=== PATIENT | female | born 1990 | race Caucasian/White ===

== ENCOUNTER 2019-02-15 20:13 | Emergency (ER) | payer MEDICAID ==
[~2019-02-15] VITALS: Ht 162.6 cm; Wt 77.7 kg
[2019-02-15 20:29] VITALS: Ht 162.6 cm; Wt 77.7 kg
[2019-02-15] MEDS ORDERED: VITAMINS (20:30)
[2019-02-15] MEDS ORDERED: VALTREX500 MG PO (20:30)
[2019-02-15] MEDS ORDERED: [UNRECOGNIZED DRUG - OTHER] (20:31)
[2019-02-15 21:00] LABS: APPEARANCE CLEAR (CLEAR); BILIRUBIN NEGATIVE (NEGATIVE); COLOR YELLOW (YELLOW); GLUCOSE 100 mg/dL (NEGATIVE); KETONE NEGATIVE (NEGATIVE); NITRITE NEGATIVE (NEGATIVE); PROTEIN NEGATIVE (NEGATIVE); SPECIFIC GRAVITY 1.005 (1.005-1.020); UROBILINOGEN NORMAL (NORMAL)
[2019-02-15 21:15] LABS: ALKALINE PHOSPHATASE 83 U/L (46-116); ALT (SGPT) 16 U/L (10-68); CALC OSMOLALITY 272 mosm/kg (275-300); CALCIUM 9.2 mg/dL (8.5-10.1); CARBON DIOXIDE 21.4 mmol/L (21.0-32.0); CHLORIDE - SERUM 108 mmol/L (98-107); CREATININE - SERUM 0.5 mg/dL (0.6-1.3); GLUCOSE 86 mg/dL (74-106); POTASSIUM - SERUM 3.4 mmol/L (3.5-5.1); PROTEIN - SERUM 7.1 g/dL (6.4-8.2); SODIUM 138 mmol/L (136-145); UREA NITROGEN 6 mg/dL (7-18); eGFR NON AFRICAN AMERICAN > 90 mL/min (90-120)
[2019-02-15 21:19] LABS: BASOPHILS 0.3 % (0-2); EOSINOPHILS 1.9 % (0-7); HEMATOCRIT 31.2 % (36.0-48.0); HEMOGLOBIN 9.9 g/dL (12-16); IMMATURE GRANULOCYTES 0.1 % (0-5); LYMPHOCYTES 26.2 % (15-50); MCH 25.7 pg (26.0-34.0); MCHC 31.7 g/dL (31.0-37.0); MEAN PLATELET VOLUME 9.4 fL (7.4-10.4); MONOCYTES 6.9 % (2-11); NEUTROPHILS 64.6 % (40-80); PLATELET COUNT 253 10x3/uL (130-400); RBC 3.85 10x6/uL (4.00-5.40); RDW 18.9 % (11.5-14.5); WBC 7.5 10x3/uL (4.8-10.8)
[2019-02-15 21:39] LABS: HCG - QUANTITATIVE (MATERNAL) 92072 mIU/mL
[2019-02-16 01:20] VITALS: BP 110/72
== END 2019-02-16 01:19 | disposition home or self-care (01) ==
LOC: D.ER 20:13
PROVIDERS: Family Medicine
DX: O26.891 Other specified pregnancy related conditions, first trimester (principal); Z3A.11 11 weeks gestation of pregnancy; R10.2 Pelvic and perineal pain

== ENCOUNTER → 2019-04-12 15:44 | Outpatient (CLI) | payer MEDICAID ==
[2019-02-15 20:29] VITALS: BMI 29.4
[~2019-04-12 15:44] MED LIST: VALTREX500 MG PO; VITAMINS; [UNRECOGNIZED DRUG - OTHER]
[2019-04-12 16:49] LABS: APPEARANCE CLEAR (CLEAR); BILIRUBIN NEGATIVE (NEGATIVE); COLOR YELLOW (YELLOW); GLUCOSE NEGATIVE (NEGATIVE); KETONE NEGATIVE (NEGATIVE); NITRITE NEGATIVE (NEGATIVE); PROTEIN NEGATIVE (NEGATIVE); SPECIFIC GRAVITY 1.015 (1.005-1.020); UROBILINOGEN NORMAL (NORMAL)
== END | disposition home or self-care (01) ==
LOC: D.LDO 15:44
PROVIDERS: ATTEND Obstetrics & Gynecology
DX: O26.899 Other specified pregnancy related conditions, unspecified trimester (principal); Z3A.00 Weeks of gestation of pregnancy not specified

== ENCOUNTER → 2019-05-28 02:20 | Outpatient (CLI) | payer MEDICAID ==
[2019-02-15 20:29] VITALS: BMI 29.4
== END | disposition home or self-care (01) ==
LOC: D.LDO 02:20
PROVIDERS: ATTEND Student in an Organized Health Care Education/Training Program
DX: O26.892 Other specified pregnancy related conditions, second trimester (principal); Z3A.26 26 weeks gestation of pregnancy

== ENCOUNTER → 2019-06-30 15:50 | Outpatient (CLI) | payer MEDICAID ==
[2019-02-15 20:29] VITALS: BMI 29.4
[2019-06-30 16:38] LABS: APPEARANCE CLEAR (CLEAR); COLOR YELLOW (YELLOW)
[2019-06-30 16:39] LABS: BILIRUBIN NEGATIVE (NEGATIVE); GLUCOSE 50 mg/dL (NEGATIVE); KETONE NEGATIVE (NEGATIVE); NITRITE NEGATIVE (NEGATIVE); PROTEIN NEGATIVE (NEGATIVE); UROBILINOGEN NORMAL (NORMAL)
[2019-06-30 16:40] LABS: BACTERIA FEW /hpf (NONE SEEN); EPITHELIAL CELLS 0-5 /hpf (0-5); RED CELLS - URINE 0-5 /hpf (0-5); WHITE CELLS - URINE 0-5 /hpf (0-5)
== END | disposition home or self-care (01) ==
LOC: D.LDO 15:50
PROVIDERS: ATTEND Student in an Organized Health Care Education/Training Program
DX: O26.90 Pregnancy related conditions, unspecified, unspecified trimester (principal)

== ENCOUNTER → 2019-07-13 12:01 | Outpatient (CLI) | payer MEDICAID ==
[2019-02-15 20:29] VITALS: BMI 29.4
== END | disposition home or self-care (01) ==
LOC: D.LDO 12:01
PROVIDERS: ATTEND Obstetrics & Gynecology
DX: O36.8190 Decreased fetal movements, unspecified trimester, not applicable or unspecified (principal)

== ENCOUNTER 2019-07-26 02:38 | Outpatient (CLI) | payer MEDICAID ==
[2019-02-15 20:29] VITALS: BMI 29.4
[2019-07-26 03:03] LABS: UDS - AMPHET NEGATIVE QUAL (NEGATIVE); UDS - BARB NEGATIVE QUAL (NEGATIVE); UDS - BENZO NEGATIVE QUAL (NEGATIVE); UDS - COCAINE NEGATIVE QUAL (NEGATIVE); UDS - OPIATE NEGATIVE QUAL (NEGATIVE); UDS - PCP NEGATIVE QUAL (NEGATIVE); UDS - THC NEGATIVE QUAL (NEGATIVE)
[2019-07-26 03:07] LABS: APPEARANCE HAZY (CLEAR); BILIRUBIN NEGATIVE (NEGATIVE); COLOR YELLOW (YELLOW); GLUCOSE NEGATIVE (NEGATIVE); KETONE NEGATIVE (NEGATIVE); NITRITE NEGATIVE (NEGATIVE); PROTEIN NEGATIVE (NEGATIVE); UROBILINOGEN NORMAL (NORMAL)
[2019-07-26 03:08] LABS: BACTERIA MODERATE /hpf (NEGATIVE); EPITHELIAL CELLS 0-5 /hpf (0-5); RED CELLS - URINE 0-5 /hpf (0-5)
[2019-08-22 09:05] VITALS: BMI 30.9
== END 2019-07-26 04:55 | disposition home or self-care (01) ==
LOC: D.LDO 02:38
PROVIDERS: ATTEND Obstetrics & Gynecology
DX: O36.8130 Decreased fetal movements, third trimester, not applicable or unspecified (principal); Z3A.34 34 weeks gestation of pregnancy

== ENCOUNTER → 2019-07-31 17:02 | Outpatient (CLI) | payer MEDICAID ==
[2019-02-15 20:29] VITALS: BMI 29.4
[~2019-07-31 17:02] MED LIST changes: +HYDROCODON-ACE1 EAC7 PO; +IBUPROFEN600 MG PO; +TYLENOL W/CODEI1 TAB PO
[2019-08-22 09:05] VITALS: BMI 30.9
== END | disposition home or self-care (01) ==
LOC: D.LDO 17:02
PROVIDERS: ATTEND Obstetrics & Gynecology
DX: O26.93 Pregnancy related conditions, unspecified, third trimester (principal); Z3A.00 Weeks of gestation of pregnancy not specified

== ENCOUNTER 2019-08-03 21:14 | Outpatient (CLI) | payer MEDICAID ==
[2019-02-15 20:29] VITALS: BMI 29.4
[~2019-08-03 21:14] MED LIST changes: -HYDROCODON-ACE1 EAC7 PO; -IBUPROFEN600 MG PO; -TYLENOL W/CODEI1 TAB PO
[2019-08-03 21:45] LABS: APPEARANCE CLEAR (CLEAR); BILIRUBIN NEGATIVE (NEGATIVE); COLOR STRAW (YELLOW); GLUCOSE NEGATIVE (NEGATIVE); KETONE NEGATIVE (NEGATIVE); NITRITE NEGATIVE (NEGATIVE); PROTEIN NEGATIVE (NEGATIVE); SPECIFIC GRAVITY 1.005 (1.005-1.020); UROBILINOGEN NORMAL (NORMAL)
[2019-08-22 09:05] VITALS: BMI 30.9
== END 2019-08-03 21:54 | disposition home or self-care (01) ==
LOC: D.LDO 21:14
PROVIDERS: ATTEND Obstetrics & Gynecology
DX: O47.9 False labor, unspecified (principal)

== ENCOUNTER 2019-08-08 17:58 | Outpatient (CLI) | payer MEDICAID ==
[2019-02-15 20:29] VITALS: BMI 29.4
[2019-08-22 09:05] VITALS: BMI 30.9
== END 2019-08-08 19:29 | disposition home or self-care (01) ==
LOC: D.LDO 17:58
PROVIDERS: ATTEND Obstetrics & Gynecology
DX: O26.899 Other specified pregnancy related conditions, unspecified trimester (principal); Z3A.00 Weeks of gestation of pregnancy not specified

== ENCOUNTER → 2019-08-20 14:54 | Outpatient (CLI) | payer MEDICAID ==
[2019-02-15 20:29] VITALS: BMI 29.4
[~2019-08-20 14:54] MED LIST changes: +HYDROCODON-ACE1 EAC7 PO; +IBUPROFEN600 MG PO; +TYLENOL W/CODEI1 TAB PO
[2019-08-22 09:05] VITALS: BMI 30.9
== END | disposition home or self-care (01) ==
LOC: D.LDO 14:54
PROVIDERS: ATTEND Obstetrics & Gynecology
DX: O35.9XX0 Maternal care for (suspected) fetal abnormality and damage, unspecified, not applicable or unspecified (principal)

== ENCOUNTER 2019-08-22 07:45 | Inpatient (IN) | payer MEDICAID ==
[~2019-08-22] VITALS: Ht 162.6 cm; Wt 81.6 kg
[~2019-08-22 07:45] MED LIST changes: -HYDROCODON-ACE1 EAC7 PO; -IBUPROFEN600 MG PO; -TYLENOL W/CODEI1 TAB PO
[2019-08-22] MEDS ORDERED: TYLENOL W/CODEI1 TAB PO (07:48)
[2019-08-22 08:12] LABS: APPEARANCE CLEAR (CLEAR); BILIRUBIN NEGATIVE (NEGATIVE); COLOR YELLOW (YELLOW); GLUCOSE NEGATIVE (NEGATIVE); KETONE NEGATIVE (NEGATIVE); NITRITE NEGATIVE (NEGATIVE); PROTEIN NEGATIVE (NEGATIVE); SPECIFIC GRAVITY 1.005 (1.005-1.020); UROBILINOGEN NORMAL (NORMAL)
[2019-08-22 09:05] VITALS: BP 120/74; Ht 162.6 cm; Wt 81.6 kg
[2019-08-22 09:21] LABS: HEMATOCRIT 32.2 % (36.0-48.0); HEMOGLOBIN 10.2 g/dL (12-16); MCH 28.7 pg (26.0-34.0); MCHC 31.7 g/dL (31.0-37.0); MCV 90.4 fL (80.0-100.0); RBC 3.56 10x6/uL (4.00-5.40); RDW 13.8 % (11.5-14.5); WBC 10.6 10x3/uL (4.8-10.8)
[2019-08-22 09:41] LABS: UDS - AMPHET NEGATIVE QUAL (NEGATIVE); UDS - BARB NEGATIVE QUAL (NEGATIVE); UDS - BENZO NEGATIVE QUAL (NEGATIVE); UDS - COCAINE NEGATIVE QUAL (NEGATIVE); UDS - OPIATE NEGATIVE QUAL (NEGATIVE); UDS - PCP NEGATIVE QUAL (NEGATIVE); UDS - THC NEGATIVE QUAL (NEGATIVE)
--- NOTE | 2019-08-22 12:58 | NUR ---
[employer] [facility] Referral Form completed per patient and faxed to [facility]
--- NOTE | 2019-08-22 15:40 | NUR ---
RECEIVED AMB TO ROOM FROM LABOR AND DELIVERY. PT RATES HER PAIN AT 3/10 AND STATES UNDERSTANDING THAT MEDS ARE AVAILABLE IF NEEDED. ORIENT TO ROOM, BATHROOM AND CALL LIGHT. SHE DENIES NEEDS AT THIS TIME, INFANT IN CRIB AT BEDSIDE AND FAMILY MEMBERS PRESENT.
--- NOTE | 2019-08-22 17:00 | NUR ---
LARGE CUP OF ICE PER REQUEST. DENIES ANY OTHER NEEDS AT THIS TIME.
--- NOTE | 2019-08-22 18:40 | NUR ---
PT RATES PAIN AT 4/10, MOTRIN GIVEN PER REQUEST AND SCANNED TO EMAR. FAMILY AT BEDSIDE, WITH IN ROOM. SIDE RAILS UP X 2 WITH CALL LIGHT IN REACH.
--- NOTE | 2019-08-22 19:33 | NUR ---
BEDSIDE REPORT RECEIVED OFF GOING DAY SHIFT CHAPIN [facility]. PT RESTING IN BED. FAMILY IN ROOM. PT DENIES ANY COMPLAINTS OR NEEDS. AT THIS TIME. PT INSTRUCTED TO NOTIFY NURSE WITH ANY PROBLEMS, NEEDS, OR CONCERNS. VERBALIZED UNDERSTANDING. BED IN LOW POSITION, SRUP X2, CALL LIGHT AND TELEPHONE WITHIN PTS REACH.
--- NOTE | 2019-08-22 20:15 | NUR ---
PT RESTING IN BED HOLDING . FAMILY IN ROOM. PT DENIES ANY COMPLAINTS OR NEEDS. INSTRUCTED PT TO NOTIFY NURSE WITH ANY PROBLEMS, NEEDS, OR CONCERNS. VERBALIZED UNDERSTANDING. BED IN LOW POSITION, SRUP X2, CALL LIGHT AND TELEPHONE WITHIN PTS REACH.
[2019-08-22 21:30] VITALS: BP 133/76
--- NOTE | 2019-08-22 21:30 | NUR ---
PT RESTING IN BED HOLDING . S/O IN ROOM. ASSESSMENT COMPLETE PER FLOWSHEET. VSS. BS CLEAR IN ALL LOBES. AUDIBLES BS X4 QUADRANTS. FUNDUS FIRM AT [facility]. SMALL AMOUNT OF LOCHIA NOTED ON PERIPAD. PT REPORTS THAT SHE HAS PASSED SOME SMALL CLOTS THAT SHE STATES HAVE BEEN NICKEL SIZED. PT DENIES PASSING CLOTS THAT ARE ANY LARGER THAN THAT SIZE. PT ENCOURAGED TO INFORM NURSE IF SHE PASSES CLOTS LARGER THAN AN EGG. PT REPORTS THAT SHE IS VOIDING WITHOUT DIFFICULTY. POC DISCUSSED INCLUDING PAIN MANAGEMENT, PERICARE, AND LOCHIA. PT INSTRUCTED TO NOTIFY NURSE WITH ANY PROBLEMS, NEEDS,OR CONCERNS. VERBALIZED UNDERSTANDING. BED IN LOW POSITION, SRUP X2, CALL LIGHT AND TELEPHONE WITHIN PTS REACH.
--- NOTE | 2019-08-22 22:10 | NUR ---
WALKING IN HALLWAY. GAIT STEADY.
--- NOTE | 2019-08-22 23:53 | NUR ---
PT RESTING IN BED. C/O PERINEAL PAIN. MOTRIN 600MG GIVEN PER PT REQUEST. WATER PITCHER FILLED. PT INSTRUCTED TO NOTIFY NURSE WITH ANY PROBLEMS, NEEDS, OR CONCERNS. VERBALIZED UNDERSTANDING. BED IN LOW POSITION, SRUP X2, CALL LIGHT AND TELEPHONE WITHIN PTS REACH.
--- NOTE | 2019-08-23 00:30 | NUR ---
PT RESTING IN BED WITH EYES CLOSED. NO DISTRESS NOTED. BED IN LOW POSITION, SRUP X2, CALL LIGHT AND TELEPHONE WITHIN PTS REACH.
--- NOTE | 2019-08-23 02:05 | NUR ---
PT RESTING IN BED HOLDING . PT DENIES ANY COMPLAINTS OR NEEDS AT THIS TIME. INSTRUCTED PT TO NOTIFY NURSE WITH ANY PROBLEMS, NEEDS, OR CONCERNS. VERBALIZED UNDERSTANDING. BED IN LOW POSITION, SRUP X2, CALL LIGHT AND TELEPHONE WITHIN PTS REACH.
[2019-08-23 04:10] VITALS: BP 128/68
--- NOTE | 2019-08-23 04:10 | NUR ---
THIS RN AGREES WITH SHIFT ASSESSMENT CHARTED
--- NOTE | 2019-08-23 04:10 | NUR ---
PT SITTING UP IN BED TALKING WITH NURSERY NURSE. VSS. PT DENIES ANY COMPLAINTS OR NEEDS AT THIS TIME. INSTRUCTED PT TO NOTIFY NURSE WITH ANY PROBLEMS, NEEDS, OR CONCERNS. VERBALIZED UNDERSTANDING. BED IN LOW POSITION, SRUP X2, CALL LIGHT AND TELEPHONE WITHIN PTS REACH.
--- NOTE | 2019-08-23 05:49 | NUR ---
SIGNIFICANT OTHER OUT OF ROOM. PT RESTING AT THIS TIME. RESP REGULAR AND UNLABORED, NO S/S OF DISTRESS NOTED. INFANT RESTING IN OPEN CRIB. BED IN LOW POSITION WITH SRUPX2. CALL LIGHT AND PHONE WITHIN REACH.
[2019-08-23 06:22] LABS: BASOPHILS 0.1 % (0-2); EOSINOPHILS 0.7 % (0-7); HEMATOCRIT 29.1 % (36.0-48.0); HEMOGLOBIN 9.2 g/dL (12-16); IMMATURE GRANULOCYTES 0.5 % (0-5); LYMPHOCYTES 21.2 % (15-50); MCH 28.4 pg (26.0-34.0); MCHC 31.6 g/dL (31.0-37.0); MCV 89.8 fL (80.0-100.0); MEAN PLATELET VOLUME 9.3 fL (7.4-10.4); MONOCYTES 6.2 % (2-11); NEUTROPHILS 71.3 % (40-80); PLATELET COUNT 206 10x3/uL (130-400); RBC 3.24 10x6/uL (4.00-5.40); RDW 13.9 % (11.5-14.5); WBC 10.2 10x3/uL (4.8-10.8)
--- NOTE | 2019-08-23 06:33 | NUR ---
PT RESTING IN BED HOLDING . PT C/O THROBBING IN HER PERINEAL AREA. MOTRIN 600MG GIVEN PER PT REQUEST. WATER PITCHER FILLED. INSTRUCTED PT TO NOTIFY NURSE WITH ANY PROBLEMS, NEEDS, OR CONCERNS. VERBALIZED UNDERSTANDING. BED IN LOW POSITION, SRUP X2, CALL LIGHT AND TELEPHONE WITHIN PTS REACH.
--- NOTE | 2019-08-23 07:30 | NUR ---
THIS RN TO ROOM WITH DR GR FOR ROUNDING. DR GR DISCUSSING DISCHARGE WITH PT, ORDERS SHE MAY DISCHARGE HOME WITH . PT STATES SHE WANTS TO GO HOME TODAY. PT DENIES NEEDS AT THIS TIME. SRUx2, CL IN REACH. WILL CONT TO MONITOR.
[2019-08-23 08:10] VITALS: BP 133/65
--- NOTE | 2019-08-23 08:10 | NUR ---
THIS RN RETURNS TO ROOM FOR SHIFT ASSESSMENT. PT SITTING UP IN BED VISITING WITH FAMILY AND HOLDING IN LAP. PT SWADDLES AND HANDS OFF TO FOB. SHIFT ASSESSMENT COMPLETE, VSS, PT RATES PAIN 2/10 AND DENIES NEED FOR PAIN MED OR INTERVENTION. SEE FLOWSHEET FOR DOC. FF, ML, U/2. SMALL RUBRA LOCHIA NOTED TO PERIPAD, NO CLOTS SEEN OR EXPRESSED WTIH FUNDAL CHECK. DISCUSSED WITH PT WHAT S/S TO REPORT WITH LOCHIA, UNDERSTANDING VERBALIZED. PT STATES SHE DID PASS SOME CLOTS DURING THE NIGHT, BUT HASN'T HAD ANYMORE. NO EDEMA NOTED TO LE, PEDAL PULSES 2+ BILAT, NEG HOMANS SIGN. LEFT WRIST PIV REMOVED WITHOUT INCIDENT, NO LONGER INDICATED. PRESSURE HELD AND BANDAID APPLIED. POC DISCUSSED WITH PT, STATES SHE IS READY TO GO HOME WHEN ABLE. DENIES NEEDS AT THIS TIME. SRUx2, CL IN REACH. FAMILY MEMBERS AT BEDSIDE.
[2019-08-23 08:11] LABS: RAPID PLASMA REAGIN Non Reactive (Non Reactive)
--- NOTE | 2019-08-23 09:40 | NUR ---
PT UP TO SHOWER, PROVIDED WITH TOWELS PER REQUEST, DENIES FURTHER NEEDS. FOB IN ROOM WITH PT, HOLDING INFANT. WILL CONT TO MONITOR.
--- NOTE | 2019-08-23 10:50 | NUR ---
THIS RN TO PT ROOM PER PT REQUEST HOME CARE [place] LIGHT. PT SITTING UP IN BED, ATTEMPTING TO LATCH TO BREAST, REQUESTS ASSISTANCE WON'T LATCH. INFANT REPOSITIONED, PT LATCHES INFANT ONTO LEFT BREAST, GOOD LATCH. PT DENIES FURTHER NEEDS. WILL CONT TO MONITOR. SRUx2, CL IN REACH. FAMILY MEMBERS AT BEDSIDE.
--- NOTE | 2019-08-23 11:58 | NUR ---
THIS RN TO ROOM FOR PT CHECK. PT AMBULATING IN ROOM, DENIES NEEDS. FAMILY IN ROOM WITH PT. WILL CONT TO MONITOR.
--- NOTE | 2019-08-23 12:35 | NUR ---
THIS RN TO ROOM FOR PT CHECK, PT DENIES NEEDS. WILL CONT TO MONITOR
--- NOTE | 2019-08-23 13:00 | NUR ---
PT QUESTIONS IF DEPO SHOT WILL "LEVEL OUT" HER HORMONES AND HELP HER SLEEP BETTER. IS AGREEABLE TO FLU VACCINE WELL. WILL NOTIFY
--- NOTE | 2019-08-23 13:10 | NUR ---
DR GR PHONED AND NOTIFIED OF PT QUESTION ON DEPO SHOT, STATES SHE MAY HAVE DEPO SHOT IM PER PROTOCOL IF DESIRED, AND MAY START ON ZOLOFT 25M PO DAILY IF DESIRED IF SHE HAS HISTORY OF PP DEPRESSION AND FEELS IT IS NEEDED. WILL UPDATE PT.
--- NOTE | 2019-08-23 13:15 | NUR ---
PT STATES SHE WILL WAIT AND GET DEPO SHOT AT APPOINTMENT, DENIES NEEDING ZOLOFT, STATES "I'LL JUST START TAKING MY MELATONIN AGAIN TO HELP ME SLEEP." WILL PROCEED WITH DISCHARGE ORDERED.
[2019-08-23] MEDS ORDERED: HYDROCODON-ACE1 EAC7 PO (13:19)
[2019-08-23] MEDS ORDERED: IBUPROFEN600 MG PO (13:20)
--- NOTE | 2019-08-23 14:20 | NUR ---
DISCHARGE INSTRUCTIONS GIVEN WELL PRESCRIPTIONS PROVIDED BY DR GR FOR PAIN CONTROL POST D/C TO HOME. PT VERBALIZES UNDERSTANDING AND DENIES QUESTIONS. PT REQUESTING MOTRIN FOR CRAMPING RATED 5/10 POST . WILL ADMIN ORDERED, SEE EMAR.
--- NOTE | 2019-08-23 14:27 | NUR ---
MOTRTIN ADMIN ORDERED FOR PAIN AT 1424, FLU VACCINE ADMIN TO RIGHT DELTOID ORDERED IM, SEE EMAR FOR MED DOC. PT DENIES FURTHER NEEDS AT THIS TIME. SRUx2, CL IN REACH. AWAITING NURSERY TO DISCHARGE .
== END 2019-08-23 15:37 | disposition home or self-care (01) | DRG 807 ==
LOC: D.LDO 07:45 → D.WS 08:35 → D.LD 08:35 → D.WS 15:43
PROVIDERS: ADMIT Obstetrics & Gynecology; ATTEND Obstetrics & Gynecology
PROC: 10E0XZZ Delivery of Products of Conception, External Approach (ICD-10-PCS; principal; 2019-08-22)
PROC: 0KQM0ZZ Repair Perineum Muscle, Open Approach (ICD-10-PCS; 2019-08-22)
DX: O62.3 Precipitate labor (principal); Z37.0 Single live birth; Z3A.38 38 weeks gestation of pregnancy; O99.334 Smoking (tobacco) complicating childbirth; O70.1 Second degree perineal laceration during delivery